=== PATIENT | female | born 1985 | race Caucasian/White ===

== ENCOUNTER 2019-12-15 17:15 | Emergency (ER) | payer OTHER, SELFPAY ==
[2019-12-15 17:23] VITALS: BP 113/68; PULSE 78; RESP 20; TEMP 37.9; O2SAT 100
--- NOTE | 2019-12-15 17:26 | ED.URI ---
HPI - URI/Sore Throat General Chief Complaint: Upper Respiratory Infection Stated Complaint: sinus pain/pressure Time Seen by Provider: 12/15/19 17:26 Source: patient and RN notes reviewed History of Present Illness HPI Narrative: Patient is a 34-year-old female who presents the urgent care with complaints of sinus pain and pressure for the last 8 days. Patient states that she is now having excruciating headache on the left side. Patient states that she has had some mild coughing but otherwise denies any shortness of breath or productive cough. Patient states she had a sore throat for 1 day and now with salt postnasal drainage. Patient denies of any known fever, nausea, vomiting. 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 Patient denies of anyone else in the household having upper respiratory symptoms. Patient states that she is breast-feeding. No other acute complaints. No acute distress noted. Patient had a plan of care. Related Data Allergies Allergy/AdvReac Type Severity Reaction Status Date / Time No Known Allergies Allergy Unverified 12/15/19 17:31 Review of Systems Review of Systems: Narrative: CONSTITUTIONAL: Reports of chills and sweats EYES: Denies visual changes, redness, or discharge. ENT: Reports of postnasal drainage, sinus pain and pressure CARDIOVASCULAR: Denies chest pain, palpitations, or edema. RESPIRATORY: Reports of nonproductive cough without dyspnea GASTROINTESTINAL: Denies abdominal pain, nausea, vomiting, or diarrhea. GENITOURINARY: Denies dysuria or hematuria. SKIN: Denies rash or itching. MUSCULOSKELETAL: Denies back pain, joint pain, or myalgia. NEUROLOGIC: Reports of headache All other systems reviewed are negative, except as documented in HPI. PMFSH Comments At the time of my signature, I reviewed and agree with the nursing past medical, surgical, social, and family history. There is no relevant family history pertinent to the patient complaint. Exam Narrative: Exam Narrative: GENERAL: This is a well-nourished, well-developed patient, appears slightly fatigued HEAD: normocephalic, atraumatic. Mild sinus tenderness EYES: PERRL. Sclera clear/white. Vision is grossly intact. EARS: External ears normal, auditory canals clear and without drainage, TMs normal without perforation. Hearing grossly intact. NOSE: External nose normal with no obvious nasal discharge, nares without redness, no rhinorrhea. THROAT: Mucous membranes moist, posterior pharynx clear. Mild postnasal drainage NECK: Neck supple CARDIOVASCULAR: Regular rate and rhythm without murmurs, gallops, or rubs. RESPIRATORY: Clear to auscultation. Breath sounds equal bilaterally. No wheezes, rales, or rhonchi. SKIN: warm, intact with no suspicious lesions or rash, good texture and turgor. NEURO: awake, alert, and oriented to person, place and time. There were no obvious focal neurologic abnormalities. EXTREMITIES: No clubbing, cyanosis, or edema. Course Vital Signs Vital signs: Vital Signs Temperature 100.3 F H 12/15/19 17:23 Pulse Rate 78 12/15/19 17:23 Respiratory Rate 20 12/15/19 17:23 Blood Pressure 113/68 12/15/19 17:23 Pulse Oximetry 100 12/15/19 17:23 Temperature 100.3 F H 12/15/19 17:23 Pulse Rate 78 12/15/19 17:23 Respiratory Rate 20 12/15/19 17:23 Blood Pressure 113/68 12/15/19 17:23 Pulse Oximetry 100 12/15/19 17:23 Reviewed MDM - URI/Sore Throat MDM Narrative Medical decision making narrative: Advised the patient to complete oral antibiotic regimen as prescribed. Due to breast-feeding, make sure you increase your water intake. Rest and use Tylenol/ibuprofen as needed for fever pain. Advised the patient to follow-up with COVID testing if symptoms do not improve in the next 24 hours while on antibiotics. Do not sleep with the windows open and may continue to use [id number] antihistamine and Flonase nasal spray for symptom
== END 2019-12-15 17:39 | disposition home or self-care (01) ==
PROVIDERS: Emergency Provider Nurse Practitioner Family; PCP Pediatrics
DX: J32.9 Chronic sinusitis, unspecified (principal); R50.9 Fever, unspecified
CPT/HCPCS: 99203; G0463